=== PATIENT | male | born 1965 | race Caucasian/White ===

== ENCOUNTER 2024-10-22 15:25 | Emergency (ER) | payer OTHER, SELFPAY ==
[2024-10-22 15:34] VITALS: BP 133/83
[2024-10-22 15:59] LABS: % Basophils 0.9 % (0-2); % Eosinophils 2.7 % (0-6); % Immature Granulocytes 0.1 % (0-0.5); % Lymphocytes 43.8 % (20.5-51.1); % Monocytes 10.7 % (1.7-9.3); % Neutrophils 41.8 % (42.2-75.2); Absolute Basophils 0.1 10^3/uL (0-0.2); Absolute Eosinophils 0.2 10^3/uL (0-0.7); Absolute Monocytes 0.7 10^3/uL (0.1-0.6); Absolute Neutrophils 2.8 10^3/uL (1.4-6.5); Hematocrit 43.8 % (39.0-52.0); Hemoglobin 15.2 g/dL (13.0-18.0); Mean Corp Hgb Conc. 34.7 g/dL (33.0-37.0); Mean Corpuscular Hgb 31.8 pg (27.0-31.0); Mean Corpuscular Volume 91.6 fL (80.0-94.0); Mean Platelet Volume 8.8 fL (7.4-10.4); Nucleated Red Blood Cells % 0 % (-); Platelet Count 236 10^3/uL (130-400); Red Blood Cell Count 4.78 10^6/uL (4.70-6.10); White Blood Cell Count 6.7 10^3/uL (4.8-10.8)
[2024-10-22 16:02] LABS: Urine Albumin Negative (Neg - Trace); Urine Bilirubin Negative (Negative); Urine Character Clear (Clear); Urine Color Yellow; Urine Glucose Negative (Negative); Urine Ketone Negative (Negative); Urine Leukocyte Negative (Negative); Urine Nitrite Negative (Negative); Urine Occult Blood Negative (Negative); Urine Specific Gravity 1.015 (<1.030); Urine Urobilinogen 1+ (Neg - 1+)
[2024-10-22 16:23] LABS: ALT (SGPT) 29 U/L (0-50); AST (SGOT) 25 U/L (17-59); Albumin 4.5 g/dl (3.5-5.0); Alkaline Phosphatase 37 U/L (38-126); Blood Urea Nitrogen 12 mg/dl (9-20); Calcium 9.8 mg/dl (8.4-10.2); Carbon Dioxide 28 mmol/L (22-30); Chloride 109 mmol/L (98-107); Glucose 102 mg/dl (70-99); Potassium 4.3 mmol/L (3.5-5.1); Sodium 142 mmol/L (135-145); Total Bilirubin 0.7 mg/dl (0.2-1.3); Total Protein 7.1 g/dl (6.3-8.2); eGFR > 60.00
[2024-10-22 18:44] VITALS: BP 127/81
--- NOTE | 2024-10-22 19:45 | ED.GENMED ---
History of Present Illness
General
Chief Complaint: Male Genito-Urinary Symptoms
Source: patient
Exam Limitations: none
Time Seen by Provider: 10/22/24 17:04
Nursing documentation reviewed up to this point in time: agreed with
History of Present Illness
History of Present Illness:
The patient is a 59-year-old male who presents with urinary symptoms and pain. The patient reports a history of kidney stones. He describes the current episode as similar to previous occurrences, with pain localized near his groin and feeling the
need to urinate constantly. He notes that in a past episode, symptoms worsened significantly, leading to noticeable scrotal swelling. Currently, he does not observe any swelling. The patient reports no additional back pain or tenderness in the
abdominal area, although he experiences a sensation of pressure.
Past History
Past History
ED Past Medical History: None
ED Past Surgical History: Tonsilectomy
Social History
Tobacco: Non-smoker
Alcohol: None
Drug: None
Employment: Employed
Review of Systems
Review of Systems
Allergies reviewed?: Yes
All Other Systems: ROS reviewed and negative except as documented in HPI and ROS
Phy Exam
Physical Exam
Physical Exam:
GENERAL: Alert , in no apparent distress
EYE: pupils equal and reactive
NECK: Supple, no significant adenopathy.
ENT: o/p clr, mmm.
CARDIAC: Regular rate and rhythm .
LUNGS: Clear breath sounds bilaterally, no acute respiratory distress, no wheezes/rales/rhonchi
ABDOMEN: Soft, without focal tenderness, no r/g, no cvat
NEUROLOGICAL: Alert and oriented, no focal neuro deficits
SKIN: Warm and dry, skin intact.
MUSCULOSKELETAL: No edema, well perfused.
PSYCH: Normal and appropriate interaction.
Course
Orders/Labs/Results
Orders:
Orders
10/22/24 15:49
Complete Blood Count/With Diff Urgent
Comprehensive Metabolic Panel Urgent
Urinalysis Reflex To Culture Urgent
Date Specimen was Collected: 10/22/24
Time Specimen was Collected: 15:41
10/22/24 18:29
CT Abd/pel Without Iv Or Oral Urgent
Comment:
Reason For Exam: lower abd pain
Abnormal Lab Results
10/22/24
15:49
MCH 31.8 H pg
(27.0-31.0)
Absolute Monos (auto) 0.7 H 10^3/uL
(0.1-0.6)
Neutrophils % 41.8 L %
(42.2-75.2)
Monocytes % 10.7 H %
(1.7-9.3)
Chloride 109 H mmol/L
(98-107)
Glucose 102 H mg/dl
(70-99)
Alkaline Phosphatase 37 L U/L
(38-126)
10/22/24 15:49
10/22/24 15:49
Vital Signs
Initial and Last Documented VS:
Initial Vital Signs
Temp Pulse Resp BP Pulse Ox
98.2 F 71 18 133/83 95
10/22/24 15:34 10/22/24 15:34 10/22/24 15:34 10/22/24 15:34 10/22/24 15:34
Last Documented Vital Signs
Temp Pulse Resp BP Pulse Ox
98.2 F 53 18 127/81 97
10/22/24 15:34 10/22/24 18:44 10/22/24 15:34 10/22/24 18:44 10/22/24 18:44
MDM/Problems Addressed
MDM/Problems Addressed:
59-year-old male presenting with concerns of urinary symptoms and lower abdominal pain that feels similar to previous kidney stones.. Here vital signs are normal patient no distress no reproducible pain labs unremarkable urinalysis normal. CT scan
was obtained for further assessment that did show a 3 mm nonobstructing calculus of the left UVJ. Results discussed with the patient as well as incidental findings he was also given a copy of the CT scan read advised to follow-up closely with a
primary care doctor. Also given information for urology follow-up otherwise no evidence of infection renal dysfunction or any complications of the kidneys noted. Stable for outpatient management.
*Pulse Oximetry
SaO2: 97
Oxygen Mode of Delivery: Room air
*Critical Care Note
Total Time (30-74mins, 75-104mins- exclusive of procedures): Not Applicable
ED Attending Note
-
Portions of this chart may have been created with voice recognition software.� Occasional wrong word or��sound alike� substitutions may have occurred due to the inherent limitations of voice recognition software.
Discharge Plan
Departure
Patient Disposition: Home (Routine Discharge)
Date of Disposition: 10/22/24
Time of Disposition: 19:50
Patient with high blood pressure during this ER visit?: No
Condition: Good
Discharge Problem:
Calculus, ureteral
Instructions: Kidney stones in adults - ED discharge instructions
Prescriptions:
New
tamsulosin [Flomax] 0.4 mg capsule
0.4 mg PO HS Qty: 10 0RF
No Action
amoxicillin-pot clavulanate 1 TABLET tablet
1 tab PO Q12 Qty: 19 0RF
oxycodone-acetaminophen 5 MG/325 MG tablet
1 tab PO Q6HPRN PRN (Reason: pain) Qty: 12 0RF
Referrals:
Vincenzo Lopes MD [Active, Urology] - Follow up in 5-7 days
UNKNOWN - PT DOES,NOT KNOW [Family Provider]
Activity Restrictions/Additional Instructions:
You came to the emergency department today with concerns of a kidney stone. This was confirmed on CT scan. Please use the Flomax and drink plenty of fluids with hopeful improvement of symptoms over the next few days. Please follow closely with
urology for ongoing symptoms. Return for any worsening, new or concerning symptoms.
Interventions
Interventions:
*Risk Screen - Suicide Last Done: 10/22/24 18:39
*General Assessment Last Done: 10/22/24 15:34
*Neglect/Abuse Screening Last Done: 10/22/24 15:34
*ED- Fall Risk Assessment Last Done: 10/22/24 18:39
*ED COVID-19 Vaccine History Last Done: 10/22/24 15:34
ED-Male Genitourinary Assessment Last Done: 10/22/24 18:39
Discharge Date and Time
Print Language: SLOVAK
[2024-10-22] MEDS: FLOMAX 0.4 MG PO (20:07)
== END 2024-10-22 20:17 | disposition home or self-care (01) ==
LOC: EMR 15:25
PROVIDERS: EMERGENCY PHYSICIAN Student in an Organized Health Care Education/Training Program
DX: N20.1 Calculus of ureter (principal); Z87.442 Personal history of urinary calculi
CPT/HCPCS: 99285; 74176; 80053; 81003; 85025